=== PATIENT | female | born 1995 | race Caucasian/White ===

== ENCOUNTER 2017-03-22 12:46 | Emergency (ER) | payer OTHER ==
--- NOTE | 2017-03-22 14:41 | ER Document Report ---
ED GI/ - General Chief Complaint: Vaginal Bleeding Stated Complaint: VAGINAL BLEEDING Time Seen by Provider: 03/22/17 14:06 Mode of Arrival: Ambulatory Information source: Patient Notes: 21 year old female (10 weeks ) presents to the ED complaining of vaginal bleeding that started this morning. Patient additionally complains of intermittent vaginal cramping which started yesterday. Patient had an ultrasound performed at an ED in [place] at 7 weeks which showed a normal . Patient reports having a head and chest cold shortly after New Years, but no other illnesses. Patient denies vomiting or burning with urination. Patient reports that her vaginal bleeding isn't saturating her pad, but is noticeable when wiping. - HPI Patient complains to provider of: Vaginal bleeding, Vaginal pain Onset: This morning Location: Vaginal Associated symptoms: Other - see notes above - Related Data Allergies/Adverse Reactions: No Known Allergies Allergy (Verified 03/22/17 12:48) Past Medical History - General Information source: Patient Last Menstrual Period: 12/25/16 - Social History Smoking Status: Never Smoker Chew tobacco use (# tins/day): No Frequency of alcohol use: None Drug Abuse: None Patient has suicidal ideation: No Patient has homicidal ideation: No Renal/ Medical History: Denies: Hx Peritoneal Dialysis Past Surgical History: Reports: Hx Open Heart Surgery - x2 Review of Systems - Review of Systems Constitutional: No symptoms reported EENT: No symptoms reported Cardiovascular: No symptoms reported Respiratory: No symptoms reported Gastrointestinal: No symptoms reported. denies: Vomiting Genitourinary: No symptoms reported. denies: Burning Female Genitourinary: See HPI, Last menstrual period - 11/2016, - 10 weeks, Vaginal bleeding Musculoskeletal: No symptoms reported Skin: No symptoms reported Hematologic/Lymphatic: No symptoms reported Neurological/Psychological: No symptoms reported -: Yes All other systems reviewed and negative Physical Exam - Vital signs Vitals: Temp Pulse Resp BP Pulse Ox 97.8 F 57 L 20 117/76 99 03/22/17 12:58 03/22/17 12:58 03/22/17 12:58 03/22/17 12:58 03/22/17 12:58 - General General appearance: Alert In distress: None - HEENT Head: Normocephalic, Atraumatic Eyes: Normal Extraocular movements intact: Yes Pupils: PERRL - Respiratory Respiratory status: No respiratory distress Breath sounds: Normal - Cardiovascular Rhythm: Regular Heart sounds: Normal auscultation - Abdominal Inspection: Normal Distension: No distension Tenderness: Nontender - Back Back: Normal - Extremities General upper extremity: Normal inspection, Normal ROM General lower extremity: Normal inspection, Normal ROM - Neurological Neuro grossly intact: Yes Cognition: Normal Orientation: AAOx4 Wentworth Coma Scale Eye Opening: Spontaneous Rita Coma Scale Verbal: Oriented Rita Coma Scale Motor: Obeys Commands Wentworth Coma Scale Total: 15 Speech: Normal - Psychological Associated symptoms: Normal affect, Normal mood - Skin Skin Temperature: Warm Skin Moisture: Dry Skin Color: Normal Course - Vital Signs Vital signs: Temp Pulse Resp BP Pulse Ox 98.2 F 90 20 121/77 99 03/22/17 17:21 03/22/17 17:21 03/22/17 17:21 03/22/17 17:21 03/22/17 17:21 - Laboratory Result Diagrams: 03/22/17 14:40 03/22/17 14:40 Laboratory results interpreted by me: 03/22/17 03/22/17 03/22/17 14:40 14:40 14:40 Seg Neutrophils % 78.6 H Serum HCG, Qual POSITIVE H Urine Blood MODERATE H - Consults Dr. Schilling Time consulted: 17:24 Reason for consultation: 03/22/17 17:24 Patient was discussed with Dr. Schilling who states to give the patient 800 mcg of Cytotec to help pass products of conception. Discharge - Discharge Clinical Impression: Incomplete miscarriage Condition: Good Disposition: HOME, SELF-CARE Instructions: Miscarriage ([facility]) Additional Instructions: You were given Cytotec today to help pass products of conception. Please follow up with your primary care provider in 3-4 days regarding your visit to the ED today. Please return to the ED for any new or worsening symptoms. Scribe Documentation - Scribe Written by Lino:: Lino Huber, 03/22/2017 1502 acting as scribe for :: Jorden
[2017-03-22 15:01] LABS: ABSOLUTE BASOPHILS # (AUTO) 0.1 10^3/uL (0.0-0.2); ABSOLUTE LYMPHOCYTES (AUTO) 1.5 10^3/uL (0.5-4.7); ABSOLUTE MONOCYTES (AUTO) 0.6 10^3/uL (0.1-1.4); ABSOLUTE NEUT (AUTO) 8.1 10^3/uL (1.7-8.2); BASOPHILS % (AUTO) 0.5 % (0-2); EOSINOPHILS % (AUTO) 0.5 % (0-6); HEMATOCRIT 38.8 % (36.0-47.0); LYMPHOCYTES % (AUTO) 14.9 % (13-45); MEAN CORPUSCULAR HEMOGLOBIN 28.6 pg (27.0-33.4); MEAN CORPUSCULAR HGB CONC 33.4 g/dL (32.0-36.0); MEAN CORPUSCULAR VOLUME 86 fl (80-97); MONOCYTES % (AUTO) 5.5 % (3-13); PLATELET COUNT 334 10^3/uL (150-450); RED BLOOD COUNT 4.54 10^6/uL (3.72-5.28); RED CELL DISTRIBUTION WIDTH 13.1 % (11.5-14.0); SEGMENTED NEUTROPHILS % (AUTO) 78.6 % (42-78); TOTAL CELLS COUNTED % (AUTO) 100 %; WHITE BLOOD COUNT 10.3 10^3/uL (4.0-10.5)
[2017-03-22 15:09] LABS: APPEARANCE,URINE CLEAR; BILIRUBIN,URINE NEGATIVE (NEGATIVE); COLOR,URINE COLORLESS; GLUCOSE, URINE NEGATIVE (NEGATIVE); KETONES,URINE NEGATIVE (NEGATIVE); LEUKOCYTE ESTERASE,URINE NEGATIVE (NEGATIVE); NITRITE,URINE NEGATIVE (NEGATIVE); PROTEIN,URINE NEGATIVE (NEGATIVE); URINE SPECIFIC GRAVITY 1.002; UROBILINOGEN,URINE NEGATIVE mg/dL (<2.0)
[2017-03-22 15:24] LABS: ANION GAP 12 (5-19); BLOOD UREA NITROGEN 8 mg/dL (7-20); CALCIUM 10.1 mg/dL (8.4-10.2); CARBON DIOXIDE 25 mmol/L (22-30); CHLORIDE 103 mmol/L (98-107); GLUCOSE 80 mg/dL (75-110); POTASSIUM 4.6 mmol/L (3.6-5.0); SODIUM 140.4 mmol/L (137-145)
--- NOTE | 2017-03-22 16:26 | RADIOLOGY REPORT (SQ) ---
EXAM DESCRIPTION: U/S OB TRANSVAG W/DOPPLER COMPLETED DATE/TIME: 03/22/2017 4:17 pm REASON FOR STUDY: vag bleeding and cramping COMPARISON: None. TECHNIQUE: Transvaginal static and realtime grayscale images acquired of the pelvis. Additional davide cted spectral and color Doppler images recorded. All images stored on PACs. bHCG: Not available. LIMITATIONS: None. FINDINGS: FETUS: Living intrauterine . EGA: 8 week. MIKEY: 11/01/2017. FHR: No cardiac activity detected. SUBCHORIONIC BLEED: No. SIZE OF BLEED: Not applicable. UTERUS: No masses. No anomalies. CERVICAL LENGTH: 2.6 cm. Closed. RIGHT ADNEXA: Normal ovary with normal vascular flow. No adnexal free fluid. No adnexal masses. LEFT ADNEXA: Normal ovary with normal vascular flow. No adnexal free fluid. No adnexal masses. FREE FLUID: None. OTHER: No other significant finding. IMPRESSION: INTRAUTERINE . NO CARDIAC ACTIVITY DETECTED, CONSISTENT WITH DEMIS E. EGA 8 WEEK. Trimester of : First - 0 to 13 weeks. TECHNICAL DOCUMENTATION: JOB ID: [id number] [employer]- All Rights Reserved
[2017-03-22 17:23] VITALS: BP 121/77
[2017-03-22] MEDS ORDERED: MISOPROSTOL 0.2 MG TABLET PO ONE (17:25)
== END 2017-03-22 17:52 | disposition home or self-care (01) ==
LOC: ER 12:46
DX: O03.4 Incomplete spontaneous abortion without complication (principal); O46.91 Antepartum hemorrhage, unspecified, first trimester; R10.2 Pelvic and perineal pain; Z3A.10 10 weeks gestation of pregnancy
CPT/HCPCS: 36415; 76817; 80048; 81001; 84703; 85025; 86900; 86901; 93976; 99284